=== PATIENT | male | born 1970 | race Caucasian/White ===

== ENCOUNTER 2020-09-07 15:11 | Emergency (ER) | payer OTHER ==
[~2020-09-07] VITALS: Ht 182.9 cm; Wt 100.0 kg
[2020-09-07 15:34] VITALS: BP 179/125
[2020-09-07] MEDS ORDERED: ketorolac tromethamine 15mg/ml inj. IM ONE (16:30)
== END 2020-09-07 16:49 | disposition home or self-care (01) ==
LOC: ER 15:11
DX: S00.81XA Abrasion of other part of head, initial encounter (principal); S00.211A Abrasion of right eyelid and periocular area, initial encounter; R42 Dizziness and giddiness; E78.00 Pure hypercholesterolemia, unspecified; I10 Essential (primary) hypertension; E11.9 Type 2 diabetes mellitus without complications; V87.7XXA Person injured in collision between other specified motor vehicles (traffic), initial encounter; Y93.89 Activity, other specified; Y92.89 Other specified places as the place of occurrence of the external cause; Y99.8 Other external cause status
CPT/HCPCS: 99283

== ENCOUNTER 2020-09-09 01:16 | Emergency (ER) | payer OTHER ==
[~2020-09-09] VITALS: Ht 177.8 cm; Wt 100.0 kg
[2020-09-09 01:18] VITALS: BP 194/126
[2020-09-09] MEDS ORDERED: ceFAZolin 1gm IM kit IM ONE (01:45)
--- NOTE | 2020-09-09 01:56 | NUR ---
Chely at bedside. Luis Ramos irrigated laceration to right wrist.
[2020-09-09] MEDS ORDERED: SULF1TAB49 PO (02:29)
[2020-09-09] MEDS ORDERED: neomy sulf/bacitrac zn/polymixin b oint 14.2 gm tube TP ONE (02:30)
[2020-09-09] MEDS ORDERED: neomy sulf/bacitrac zn/polymixin b oint 14.2 gm tube TP SCH (02:30)
[2020-09-09] MEDS ORDERED: bacitracin 15gm ointment TP ONE (02:40)
--- NOTE | 2020-09-09 02:43 | NUR ---
Dr. English stitched up left and right wrist after tech Richard irrigated. Bandages with Bacitracin applied to both incisions. Pt CSM intact, denies pain.
== END 2020-09-09 02:51 ==
LOC: ER 01:16 → EEVIPCON 01:16 → ER 02:51
DX: S51.812A Laceration without foreign body of left forearm, initial encounter (principal); S51.811A Laceration without foreign body of right forearm, initial encounter; E78.00 Pure hypercholesterolemia, unspecified; I10 Essential (primary) hypertension; E11.9 Type 2 diabetes mellitus without complications; Z79.899 Other long term (current) drug therapy; X83.8XXA Intentional self-harm by other specified means, initial encounter; Y93.89 Activity, other specified; Y92.89 Other specified places as the place of occurrence of the external cause; Y99.8 Other external cause status
CPT/HCPCS: 12034; 96372; 99284; J0690